=== PATIENT | male | born 1960 | race Caucasian/White ===

== ENCOUNTER 2019-07-31 18:05 | Emergency (ER) | payer MEDICAID ==
[~2019-07-31] VITALS: Ht 177.8 cm; Wt 117.9 kg
[2019-07-31 19:49] LABS: Albumin 3.6 g/dL (3.4-5.0); BUN/Creatinine Ratio 15.7; Calcium 8.9 mg/dL (8.5-10.1); Potassium 4.1 mmol/L (3.5-5.1)
[2019-07-31 19:51] LABS: Bilirubin, Total 0.7 mg/dL (0.2-1.0); Total Protein 7.6 g/dL (6.4-8.2)
[2019-07-31] MEDS ORDERED: IOHEXOL 300 MG/ML 100ML BOTTLE IJ ONE (19:57)
[2019-07-31 20:12] LABS: Basophils # (auto) 0 uL; Basophils % (auto) 0.1 % (0.0-2.0); Eosinophils # (auto) 0.5 uL; Eosinophils % (auto) 3.9 % (0.0-7.0); Hematocrit 44.3 % (41.0-53.0); Hemoglobin 15.4 g/dL (13.5-17.5); Lymphocytes # (auto) 2.3 uL; Lymphocytes % (auto) 17.2 % (10.0-50.0); Mean Corpuscular Hemoglobin 31.4 pg (28.0-32.0); Mean Corpuscular Hgb Conc. 34.7 g/dL (32.0-36.0); Mean Corpuscular Volume 90.4 fL (80.0-100.0); Monocytes # (auto) 1.1 uL; Monocytes % (auto) 8.4 % (0.0-12.0); Neutrophils # (auto) 9.3 uL; Neutrophils % (auto) 70.4 % (37.0-80.0); Platelet Count (auto) 234 10^3/uL (140-450); Red Cell Distribution Width 14.7 % (11.8-14.3); White Blood Cell 13.2 10^3/uL (4.4-10.8)
[2019-07-31] MEDS ORDERED: cefTRIAXone 1GM/50ML D5W 50 ML IV ONE (20:45)
[2019-08-01] MEDS ORDERED: SODIUM CHLORIDE 0.9% 1,000 ML IV ONE (10:30)
[2019-08-01 15:52] VITALS: BP 136/82
[2019-08-01] MEDS ORDERED: ONDANSETRON HCL 4 MG/2 ML VIAL IV ONE (16:00)
[2019-08-01] MEDS ORDERED: MORPHINE SULFATE 4 MG/ML SYR/VIAL IV ONE (16:00)
== END 2019-08-01 16:43 | disposition short-term general hospital (02) ==
LOC: ER 18:09
DX: L03.221 Cellulitis of neck (principal); L02.11 Cutaneous abscess of neck; T81.49XA Infection following a procedure, other surgical site, initial encounter; I10 Essential (primary) hypertension; Y83.8 Other surgical procedures as the cause of abnormal reaction of the patient, or of later complication, without mention of misadventure at the time of the procedure; Y92.89 Other specified places as the place of occurrence of the external cause
CPT/HCPCS: 36415; 70491; 80053; 83605; 85025; 87040; 96365; 96375; 99285; J0696; J2270; J2405; J7030; Q9967

== ENCOUNTER 2020-06-25 12:02 | Emergency (ER) | payer MEDICAID ==
[~2020-06-25] VITALS: Ht 177.8 cm; Wt 113.4 kg
[2020-06-25 12:49] VITALS: BP 143/97
[2020-06-25] MEDS ORDERED: cefTRIAXone SOD 1,000 MG VL IM ONE (13:45)
== END 2020-06-25 14:31 | disposition home or self-care (01) ==
LOC: ER 12:02
DX: K04.7 Periapical abscess without sinus (principal); I10 Essential (primary) hypertension
CPT/HCPCS: 41800; 96372; 99284; J0696